=== PATIENT | female | born 1935 | race Caucasian/White ===

== ENCOUNTER 2020-09-15 19:26 | Inpatient (IN) | payer OTHER ==
[~2020-09-15] VITALS: Ht 152.4 cm; Wt 101.0 kg
[2020-09-15 20:17] LABS: Basophils # (auto) 0.1 10 ^3/uL (0-0.2); Basophils % (auto) 0.7 % (0.0-2.0); Eosinophils # (auto) 0.4 10 ^3/uL (0-0.8); Eosinophils % (auto) 5.2 % (0.0-7.0); Hematocrit 41.7 % (36.0-46.0); Hemoglobin 13.8 g/dL (12.2-16.2); Lymphocytes # (auto) 2.2 10 ^3/uL (0.4-5.4); Mean Corpuscular Hgb Conc. 33.2 g/dL (32.0-36.0); Mean Corpuscular Volume 93.4 fL (80.0-100.0); Monocytes # (auto) 0.8 10 ^3/uL (0-1.3); Monocytes % (auto) 10.2 % (0.0-12.0); Neutrophils # (auto) 4.4 10 ^3/uL (1.6-8.6); Neutrophils % (auto) 55.9 % (37.0-80.0); Red Blood Cells 4.47 10^6/uL (4.0-5.20); Red Cell Distribution Width 14.3 % (11.8-14.3); White Blood Cell 7.9 10^3/uL (4.4-10.8)
[2020-09-15 20:31] LABS: INR 0.94 (0.9-1.15); Partial Thromboplastin Time 24.8 sec (23.0-31.2)
[2020-09-15 20:33] LABS: Anion Gap 5 (5-15); Blood Urea Nitrogen 32 mg/dL (7-18); Calcium 8.8 mg/dL (8.5-10.1); Carbon Dioxide 26 mmol/L (21-32); Chloride 107 mmol/L (98-107); Glucose 126 mg/dL (74-106); Potassium 3.8 mmol/L (3.5-5.1); Sodium 138 mmol/L (136-145)
[2020-09-15 20:41] LABS: Alanine Aminotransferase 31 U/L (13-56); Albumin 3.4 g/dL (3.4-5.0); Alkaline Phosphatase 62 U/L (45-117); Aspartate Aminotransferase 20 U/L (15-37); BUN/Creatinine Ratio 25.6; Bilirubin, Total 0.4 mg/dL (0.2-1.0); GFR African American 53 mL/min; GFR Non-African American 43 mL/min; Total Protein 7.7 g/dL (6.4-8.2)
[2020-09-15] MEDS ORDERED: ACETAMINOPHEN 325 MG TAB PO PRN (21:15)
[2020-09-15] MEDS ORDERED: DEXTROSE (50%) 50ML SYRG IV PRN (21:15)
[2020-09-15] MEDS ORDERED: ONDANSETRON HCL 4 MG/2 ML VIAL IV PRN (21:15)
[2020-09-15] MEDS: ATORVASTATIN 20 MG TAB PO SCH (22:30)
[2020-09-15] MEDS: InsuLIN REG 1unit/0.01ml Soln (100units/ml) SC SCH (22:30)
[2020-09-15] MEDS: ACCU-CHEK COMFORT CURVE STRIP VI SCH (22:30)
[2020-09-16 00:09] LABS: Urine Amorphous Crystal FEW /hpf (None Seen); Urine Bacteria MOD /hpf (None Seen); Urine Blood Negative /uL (Negative); Urine Specific Gravity 1.015 (1.001-1.035); Urine WBC 46 /hpf (0 - 5)
[2020-09-16] MEDS: cloNIDine HCL 0.1 MG TAB PO PRN ×2 (01:34→17:18)
[2020-09-16] MEDS: ACCU-CHEK COMFORT CURVE STRIP VI SCH ×4 (06:44→21:32)
[2020-09-16] MEDS: InsuLIN REG 1unit/0.01ml Soln (100units/ml) SC SCH ×4 (06:45→22:12)
[2020-09-16 06:52] LABS: Basophils # (auto) 0.1 10 ^3/uL (0-0.2); Basophils % (auto) 0.7 % (0.0-2.0); Eosinophils # (auto) 0.3 10 ^3/uL (0-0.8); Hematocrit 40.6 % (36.0-46.0); Hemoglobin 13.7 g/dL (12.2-16.2); Lymphocytes # (auto) 1.8 10 ^3/uL (0.4-5.4); Lymphocytes % (auto) 19.1 % (10.0-50.0); Mean Corpuscular Hemoglobin 31.5 pg (28.0-32.0); Mean Corpuscular Hgb Conc. 33.9 g/dL (32.0-36.0); Mean Corpuscular Volume 92.8 fL (80.0-100.0); Monocytes % (auto) 10.1 % (0.0-12.0); Neutrophils # (auto) 6.4 10 ^3/uL (1.6-8.6); Neutrophils % (auto) 67.1 % (37.0-80.0); Nucleated Red Blood Cells % 0.1 %; Red Blood Cells 4.37 10^6/uL (4.0-5.20); Red Cell Distribution Width 14.7 % (11.8-14.3); White Blood Cell 9.6 10^3/uL (4.4-10.8)
[2020-09-16 07:05] LABS: Calcium 8.8 mg/dL (8.5-10.1)
[2020-09-16 07:07] LABS: BUN/Creatinine Ratio 27.8
[2020-09-16] MEDS ORDERED: LORazepam 2MG/ML-1ML VIAL IV PRN (09:00)
[2020-09-16] MEDS ORDERED: CLOPIDOGREL BISULFATE 75 MG TAB PO ONE (09:00)
[2020-09-16] MEDS: ASPirin 81 mg TAB PO SCH (09:19)
[2020-09-16] MEDS: cefTRIAXone 1GM/50ML D5W 50 ML IV SCH (09:19)
[2020-09-16] MEDS: ENOXAPARIN SOD 40 MG/0.4 ML SYRINGE SC SCH (09:20)
[2020-09-16] MEDS: PANTOPRAZOLE 40 MG TAB PO SCH (09:20)
[2020-09-16 09:28] LABS: Cholesterol 190 mg/dL (< 200)
[2020-09-16 09:31] LABS: HDL Cholesterol 50 mg/dL (40-59); LDL Cholesterol 124 mg/dL (< 100); Triglycerides 141 mg/dL (< 150)
[2020-09-16] MEDS ORDERED: ASPirin 81 mg TAB PO SCH (10:00)
[2020-09-16] MEDS ORDERED: ENOXAPARIN SOD 30 MG/0.3 ML SYRINGE SC SCH (10:00)
[2020-09-16] MEDS ORDERED: amLODIPine BESYLATE 5 MG TAB PO SCH (10:00)
[2020-09-16] MEDS ORDERED: levoFLOXacin 500 MG TAB PO ONE (11:00)
[2020-09-16] MEDS ORDERED: IOPAMIDOL 76 % (ISOVUE-370) 100ML BTL IV ONE (11:25)
[2020-09-16 15:30] VITALS: BP 143/79
[2020-09-16 17:00] VITALS: BP 160/84
[2020-09-16] MEDS: ATORVASTATIN 20 MG TAB PO SCH (21:32)
[2020-09-16 22:00] VITALS: BP_SYST 115; BP_SYST 172; BP_DIAS 54; BP_DIAS 90
[2020-09-17] MEDS: cloNIDine HCL 0.1 MG TAB PO PRN (00:06)
[2020-09-17] MEDS ORDERED: hydrALAZINE HCL 20 MG/ML VL IV PRN (02:15)
[2020-09-17 05:00] VITALS: BP 152/73
[2020-09-17 05:49] LABS: Basophils # (auto) 0.1 10 ^3/uL (0-0.2); Eosinophils # (auto) 0.5 10 ^3/uL (0-0.8); Eosinophils % (auto) 6.3 % (0.0-7.0); Hematocrit 41.5 % (36.0-46.0); Hemoglobin 13.8 g/dL (12.2-16.2); Lymphocytes # (auto) 1.6 10 ^3/uL (0.4-5.4); Lymphocytes % (auto) 19.4 % (10.0-50.0); Mean Corpuscular Hemoglobin 31.4 pg (28.0-32.0); Mean Corpuscular Hgb Conc. 33.2 g/dL (32.0-36.0); Mean Corpuscular Volume 94.7 fL (80.0-100.0); Monocytes % (auto) 11.8 % (0.0-12.0); Neutrophils # (auto) 5.2 10 ^3/uL (1.6-8.6); Neutrophils % (auto) 61.5 % (37.0-80.0); Red Blood Cells 4.38 10^6/uL (4.0-5.20); Red Cell Distribution Width 14.2 % (11.8-14.3); White Blood Cell 8.4 10^3/uL (4.4-10.8)
[2020-09-17] MEDS: ACCU-CHEK COMFORT CURVE STRIP VI SCH ×4 (06:11→22:03)
[2020-09-17] MEDS: InsuLIN REG 1unit/0.01ml Soln (100units/ml) SC SCH ×4 (06:28→22:04)
[2020-09-17 07:18] LABS: BUN/Creatinine Ratio 25.3; Potassium 3.7 mmol/L (3.5-5.1)
[2020-09-17 07:28] LABS: Free T3 2.37 pg/mL (2.3-4.2); Free T4 (Free Thyroxine) 1.13 ng/dL (0.89-1.76)
[2020-09-17] MEDS: cefTRIAXone 1GM/50ML D5W 50 ML IV SCH (08:46)
[2020-09-17 09:00] VITALS: BP 131/87
[2020-09-17] MEDS: ASPirin 81 mg TAB PO SCH (09:43)
[2020-09-17] MEDS: ENOXAPARIN SOD 40 MG/0.4 ML SYRINGE SC SCH (09:43)
[2020-09-17] MEDS: PANTOPRAZOLE 40 MG TAB PO SCH (09:44)
[2020-09-17] MEDS ORDERED: amLODIPine BESYLATE 5 MG TAB PO SCH (10:00)
[2020-09-17 12:38] VITALS: BP 142/74
[2020-09-17 16:07] VITALS: BP 151/60
[2020-09-17 16:41] VITALS: BP 131/87
[2020-09-17] MEDS ORDERED: ATORVASTATIN 20 MG TAB PO SCH (22:00)
[2020-09-18] MEDS ORDERED: LEV50T GT (11:45)
[2020-09-18] MEDS ORDERED: ATOR20TA PO (11:45)
[2020-09-18] MEDS ORDERED: LEVO500T31 PO (11:45)
[2020-09-18] MEDS ORDERED: LOS25T PO (11:45)
[2020-09-18] MEDS ORDERED: ASPI1TAB19 PO (11:45)
[2020-09-18] MEDS ORDERED: BUDE0.5S IN (11:45)
== END 2020-09-17 22:10 | disposition home health service (06) | DRG 65 ==
LOC: ER 19:26 → OVERFLOW 19:27 → WEST WING 09-16 14:38
PROVIDERS: ADMIT Nurse Practitioner; ATTEND Internal Medicine
DX: I63.81 Other cerebral infarction due to occlusion or stenosis of small artery (principal); N39.0 Urinary tract infection, site not specified; E11.22 Type 2 diabetes mellitus with diabetic chronic kidney disease; E04.1 Nontoxic single thyroid nodule; E11.51 Type 2 diabetes mellitus with diabetic peripheral angiopathy without gangrene; Z20.822 Contact with and (suspected) exposure to COVID-19; I65.29 Occlusion and stenosis of unspecified carotid artery; E66.9 Obesity, unspecified; Z68.39 Body mass index [BMI] 39.0-39.9, adult; Z79.02 Long term (current) use of antithrombotics/antiplatelets; Z79.899 Other long term (current) drug therapy; Z79.82 Long term (current) use of aspirin; N18.31 Chronic kidney disease, stage 3a; R47.01 Aphasia; I10 Essential (primary) hypertension
CPT/HCPCS: 36415; 70450; 70498; 70551; 71045; 80048; 80053; 80061; 80320; 81001; 82962; 83605; 83880; 84439; 84443; 84481; 84484; 85025; 85610; 85730; 87040; 87086; 87426; 93005; 93306; 93886; 96365; 96372; G0378; J0696; J1815